=== PATIENT | male | born 1985 | race African-American/Black ===

== ENCOUNTER 2018-03-30 17:04 | Emergency (ER) | payer OTHER ==
[~2018-03-30] VITALS: Ht 175.3 cm; Wt 77.1 kg
[2018-03-30 17:37] LABS: URINE BILIRUBIN NEGATIVE (Negative); URINE BLOOD NEGATIVE (Negative); URINE CLARITY CLEAR; URINE COLOR YELLOW; URINE GLUCOSE-RANDOM* NEGATIVE (Negative); URINE KETONES NEGATIVE (Negative); URINE LEUKOCYTES-REFLEX NEGATIVE (Negative); URINE NITRITE-REFLEX NEGATIVE (Negative); URINE PROTEIN (DIPSTICK) NEGATIVE (Negative); URINE SPECIFIC GRAVITY 1.025 (1.005-1.035)
[2018-03-30 17:38] LABS: ABSOLUTE NEUTROPHILS 6.6 thou/uL (1.4-8.2); BASOPHILS 0.5 % (0.0-2.0); EOSINOPHILS 1.8 % (0.0-3.0); HEMATOCRIT 40.7 % (42.0-52.0); HEMOGLOBIN 13.8 gm/dL (14.0-18.0); MCH 29.5 pg (26.0-34.0); MCHC 33.9 g/dL (28.0-37.0); MCV 87.2 fL (80.0-100.0); MONOCYTES 8.2 % (1.0-8.0); PLATELET COUNT 359 thou/uL (150-400); POLYS 72.5 % (36.0-66.0); RBC 4.67 mil/uL (4.50-6.00); RDW 13.1 % (10.5-14.5); WBC 9.1 thou/uL (4.0-11.0)
[2018-03-30 17:46] LABS: CALCIUM 9.2 mg/dL (8.5-10.1); CREATININE 1.1 mg/dL (0.7-1.3); POTASSIUM 3.6 mmol/L (3.5-5.1)
[2018-03-30 17:52] LABS: ALBUMIN 3.5 g/dL (3.4-5.0); TOTAL BILIRUBIN 0.2 mg/dL (<0.1-1.0); TOTAL PROTEIN 7.9 g/dL (6.4-8.2)
[2018-03-30] MEDS ORDERED: KEFLEX500 M1 PO (18:51)
[2018-03-30] MEDS ORDERED: TRAMADOL 50 MG50 MG PO (18:52)
[2018-03-30 19:28] VITALS: BP 135/76
== END 2018-03-30 19:32 | disposition home or self-care (01) ==
LOC: ER 17:04
PROVIDERS: Physician Assistant
DX: N49.2 Inflammatory disorders of scrotum (principal); F17.210 Nicotine dependence, cigarettes, uncomplicated